=== PATIENT | male | born 1955 | race Caucasian/White ===

== ENCOUNTER → 2018-07-11 13:57 | Outpatient (CLI) | payer OTHER | END | disposition home or self-care (01) | LOC: D.HCCARDIO 13:57 | PROVIDERS: ATTEND Internal Medicine Cardiovascular Disease | DX: I48.91 Unspecified atrial fibrillation (principal); I10 Essential (primary) hypertension ==

== ENCOUNTER → 2018-07-25 09:54 | Outpatient (CLI) | payer OTHER | END | disposition home or self-care (01) | LOC: D.HCCARDIO 09:54 | PROVIDERS: ATTEND Internal Medicine Cardiovascular Disease | DX: R94.31 Abnormal electrocardiogram [ECG] [EKG] (principal) ==

== ENCOUNTER 2018-08-08 11:43 | Outpatient (CLI) | payer OTHER ==
[~2018-08-08] VITALS: Ht 180.3 cm; Wt 86.4 kg
--- NOTE | ~2018-08-08 | HEMODYNAMI ---
PATIENT:NICKI BUSTAMANTE MEDICAL RECORD: [id number] : 51 LOCATION:D.CAT ADMISSION DATE: 08/08/18 Generatedon:08/08/201816:03 Patient name: NICKI BUSTAMANTE Patient #: [id number] SSN: DO B: 1955 Date of study: 08/08/2018 Page: Of Hemodynamic Procedure Report Patient Data Patient Demographics Procedure consent was obtained First Name: NICKI Gender: Male Last Name: ROBBY : 1955 [facility] Initial: HANY Age: 62 year(s) Patient #: [id number] Race: Additional ID: [id number] Contact details [address]: [address] [place] [address] State: [place] City: [place] Zip code: [address] Past Medical History Allergies: No known allergies Admission Admission Data Admission Date: 08/08/2018 Admission Time: 11:43 Weight (lbs.): 189.6 Weight (kg.): 86 Lab Results Lab Result Date: 08/08/2018 Lab Result Time: 0:00 Biochemistry Name Units Result Min Max BUN mg/dl 16 --(---*)-- 7 18 Creatinine mg/dl 1 --(--*-)-- 0.6 1.3 CBC Name Units Result Min Max Hematocrit % 43.5 --(*---)-- 42 54 Hemoglobin g/dl 14.8 --(-*--)-- 13.5 17.5 Procedure Procedure Types Cath Procedure Diagnostic Procedure LHC LHC w/Coronaries Procedure Description Procedure Date Procedure Date: 08/08/2018 Procedure Start Time: 15:44 Procedure End Time: 15:57 Procedure Staff Name Function Amos Mazariegos RT Monitor Vladimir Beckwith RN Web Site Administrator Vinay Rendon MD Performing Physician Eleno Yepez RN Nurse Lisa Macias RT Scrub Procedure Data Cath Procedure Fluoroscopy Diagnostic fluoroscopy Total fluoroscopy Time: 2.2 time: 2.2 min min Diagnostic fluoroscopy Total fluoroscopy dose: 499 dose: 499 mGy mGy Contrast Material Contrast Material Type Amount (ml) Isovue 300 41 Entry Location Entry Primary Successful Side Size Upsize Upsize Entry Closure Muro ccessful Closure Location (Fr) 1 (Fr) 2 (Fr) Remarks Device Remarks Radial Right 6 Fr Mechanical artery Short Compression Estimated blood loss: 10 ml Diagnostic catheters Device Type Used For End Catheter Placement DIAGNOSTIC Elan 110cm Procedure 5Fr catheter ([id number]) DIAGNOSTIC Halifax 110cm 5 Procedure Fr catheter ([id number]) Procedure Medications Medication Administration Route Dosage 0.9% NaCl I.V. 100 ml/hr Oxygen etCO2 Nasal cannula 2 l/min Heparin Flush Bag added to field 2 bags (1000units/500ml NS) Lidocaine 2% added to field 20 Radial Cocktail added to field 1 syringe (Verapamil 2mg/Nitro 400mcg/Heparin 1500units) Versed I.V. 2 mg Fentanyl I.V. 100 mcg Radial Cocktail I.A. 1 syringe (Verapamil 2mg/Nitro 400mcg/Heparin 1500units) Hemodynamics Rest HGB: 14.8 (g/dl) Heart Rate: 55 (bpm) Pressure Samples Time Site Value (mmHg) Purpose Heart Use Rate(bpm) 15:46 LV 119/-3,17 Snapshot 59 15:46 LV 123/-1,13 EDP 57 15:47 LV 117/-1,13 Pullback 40 15:47 AO 108/65(83) Pullback 40 15:47 AO 105/64(82) Snapshot 56 15:50 AO 101/64(81) Snapshot 66 Gradients Valve Time Site 1 Site 2 Mean SEP/DFP Peak To Heart Use (mmHg) (sec/min) Peak Rate (mmHg) (bpm) Aortic 15:47 LV AO 13 9 9 40 117/-1,13 108/65(83) Calculations Valve P-P Mean Valve Index Valve Source Name Gradient Area Flow (cm2) Aortic 9 13 9 13 Snapshots Pre Cath Intra NCS Post Cath Vital Signs Time Heart Resp SPO2 etCO2 NIBP (mmHg) Rhythm Pain Sedation Rate (ipm) (%) (mmHg) Status Level (bpm) 15:32:26 53 16 100 33 137/78(101) NSR 0 (11) 10(A) , No pain 15:36:40 47 15 100 30 130/74(93) NSR 0 (11) 10(A) , No pain 15:40:54 46 10 96 41.2 122/69(81) NSR 0 (11) 10(A) , No pain 15:45:00 57 14 98 37.5 130/82(109) NSR 0 (11) 10(A) , No pain 15:49:18 54 12 97 38.2 115/57(80) NSR 0 (11) 10(A) , No pain 15:53:28 64 16 96 38.9 119/64(84) NSR 0 (11) 10(A) , No pain 15:57:38 98 38.2 126/67(82) NSR 0 (11) 10(A) , No pain Medications Time Medication Route Dose Verified Delivered Reason Notes Effectiveness by by 15:30:36 0.9% NaCl I.V. 100 Eleno Eleno Per ml/hr Marleni Yepez physician RN RN 15:30:45 Oxygen etCO2 2 l/min Eleno Eleno for low 02 Nasal Lorigan Marleni sats cannula RN RN 15:30:57 Heparin Flush added 2 bags Eleno Eleno used for Bag to Lorigan Marleni procedure (1000units/500ml RN RN NS) 15:31:07 Lidocaine 2% added 20ml Eleno Eleno for local to vial Lorigan Lorigan anesthetic RN RN 15:31:18 Radial Cocktail added 1 Eleno Eleno used for (Verapamil to syringe Lorigan Marleni procedure 2mg/Nitro field CASTANO RN 400mcg/Hepari 15:44:29 Versed I.V. 2 mg Eleno Eleno for sedation Marleni eYpez RN RN 15:44:37 Fentanyl I.V. 100 mcg Eleno Eleno for sedation Marleni Yepez RN RN 15:44:52 Radial Cocktail I.A. 1 Eleno Vinay for (Verapamil syringe Marleni Rendon MD vasodilation 2mg/Nitro RN 400mcg/Hepari Procedure Log Time Note 15:15:02 Vladimir Beckwith RN sent for patient. Start room use. 15:18:48 Signed procedure consent form obtained from patient. 15:18:50 Diagnostic Cath status Elective 15:18:51 Time tracking: Regular hours (M-F 7:00 - 5:00) 15:18:54 Plan of Care:Hemodynamics will remain stable., Cardiac rhythm will remain stable., Comfort level will be maintained., Respiratory function will remain adequate., Patient/ family verbilizes understanding of procedure., Procedure tolerated without complication., Recovers from procedure without complications.. 15:20:44 Patient received from Pre/Post Procedure Room to CCL 2 Alert and oriented. Tansferred to table in Supine position. 15:20:45 Correct patient and procedure confirmed by team. 15:20:45 Warm blankets applied, and zacarias hugger turned on for patient comfort. 15:20:46 ECG and BP/O2 sat monitors applied to patient. 15::51 Patient Weight : 189.6 lbs 15:22: Patient allergic to No known allergies 15:: Lab Result : BUN 16 mg/dl 15:: Lab Result : Hematocrit 43.5 % 15:: Lab Result : Hemoglobin 14.8 g/dl 15:: Lab Result : Creatinine 1 mg/dl 15:30:36 0.9% NaCl 100 ml/hr I.V. was administered by Eleno Yepez RN; Per physician; 15:30:45 Oxygen 2 l/min etCO2 Nasal cannula was administered by Eleno Yepez RN; for low 02 sats; 15:30:57 Heparin Flush Bag (1000units/500ml NS) 2 bags added to field was administered by Eleno Yepez RN; used for procedure; 15:31:07 Lidocaine 2% 20ml vial added to field was administered by Eleno Yepez RN; for local anesthetic; 15:31:18 Radial Cocktail (Verapamil 2mg/Nitro 400mcg/Heparin 1500units) 1 syringe added to field was administered by Eleno Yepez RN; used for procedure; 15:31:23 Vital chart was started 15:35:40 Right Radial & Right Groin area was prepped with chlora-prep and draped in sterile fashion 15:35:42 Alarms reviewed by R. N. 15:35:43 Sharps counted by scrub and verified by R.N. 15:36:00 Is patient on blood thinner?No 15:36:02 Patient diabetic? No. 15:36:08 ----Pre-sedation anethsthesia assessment.---- 15:36:22 Previous problem with sedation/anesthesia? No ? 15:36:34 Snore? Yes 15:36:36 Sleep apnea? No 15:36:39 Deviated septum? No 15:36:40 Opens mouth fully? Yes 15:36:44 Sticks out tongue? Yes 15:36:50 Airway obstruction? No ? 15:36:57 Dentures? No ? 15:37:13 Pre procedure: right posterior tibial pulse 1+ Palpable, but thready & weak; easily obliterated 15:37:30 IV patent on arrival in left forearm with 0.9% NaCl at KVO. 15:38:32 Use device set Radial Dx or PCI 15:38:34 Medline Cath Pack ([id number]) opened to sterile field. 15:38:34 ACIST Syringe (24326) opened to sterile field. 15:38:36 Bag Decanter (2001S) opened to sterile field. 15:38:38 ACIST Hand Control (00901) opened to sterile field. 15:38:39 ACIST Manifold (41071) opened to sterile field. 15:38:40 Tegaderm 4 x 4 (1626W) opened to sterile field. 15:38:41 MBrace Wrist Support ([id number]) opened to sterile field. 15:38:45 EMERALD Guide Wire (512-693) opened to sterile field. 15:38:46 SHEATH 6FR Slender (801060) opened to sterile field. 15:39:44 Zero performed for pressure channel P1 15:40:47 Physician arrived 15:40:48 --------ALL STOP TIME OUT------ 15:40:49 Final Timeout: patient, procedure, and site verified with staff and physician. All members of the team are in agreement. 15:40:53 Right Radial & Right Groin site verified by team. 15:40:58 Fire Safety Assessment: A--An alcohol-based skin anteseptic being used preoperatively., C--Open oxygen or nitrous oxide is being used., D--An ESU, laser, or fiber-optic light is being used. 15:41:03 Physical assessment completed. ASA score P 2 - A patient with mild systemic disease as per Vinay Rendon MD. 15:43:02 1) 90+ Normal kidney functon but urine findings or structural abnormalities or genetic trait point to kidney disease. 15:43:39 Maximum allowable contrast does (3.7 X eGFR X 0.75) ml. 15:43:44 Sedation plan: IV Moderate Sedation Medication:Versed, Fentanyl 15:44:13 Full Disclosure recording started 15:44:13 Procedure started. 15:44:21 Local anesthetic to right radial artery with Lidocaine 2% by Vinay Rendon MD.INITIAL ACCESS ONLY 15:44:29 Versed 2 mg I.V. was administered by Eleno Yepez RN; for sedation; 15:44:37 Fentanyl 100 mcg I.V. was administered by Eleno Yepez RN; for sedation; 15:44:46 A 6 Fr Short sheath was inserted into the Right Radial artery 15:44:52 Radial Cocktail (Verapamil 2mg/Nitro 400mcg/Heparin 1500units) 1 syringe I.A. was administered by Vinay Rendon MD; for vasodilation; 15:45:33 A DIAGNOSTIC Elan 110cm 5Fr catheter ([id number]) was advanced over the wire and used for Procedure. 15:45:40 Baseline sample Acquired. 15:45:44 Rhythm: sinus bradycardia 15:46:49 LV gram done using SETHI 15:46:51 LV hemodynamics recorded. 15:46:57 EF : 50 % 15:47:33 RCA angiography performed. 15:49:03 Catheter removed. 15:49:45 A DIAGNOSTIC Halifax 110cm 5 Fr catheter ([id number]) was advanced over the wire and used for Procedure. 15:50:15 LCA angiography performed. 15:52:07 TR BAND Standard ([id number]) opened to sterile field. 15:55:06 Sheath removed intact; hemostasis achieved with Mechanical Compression to the Right Radial artery. 15:55:08 Procedure ended.(Physican Out) 15:55:19 Fluoroscopy time 02.20 minutes. 15:55:28 Fluoroscopy dose: 499 mGy 15:55:28 Flurop Dose total: 499 15:55:35 Contrast amount:Isovue 300 41ml. 15:55:42 Sharps counted by scrub and verified by R.N. 15:55:45 Insertion/operative site no bleeding no hematoma. 15:55:57 Post right radial artery:stable 15:56:01 Post Procedure Pulses reassessed and unchanged 15:56:13 Post-procedure physical assessment completed. ASA score P 2 - A patient with mild systemic disease as per Vinay Rendon MD. 15:56:19 Post procedure rhythm: sinus bradycardia 15:56:23 Estimated blood loss: 10 ml 15:56:40 Patient needs reinforcement of post procedure teaching. 15:57:19 Procedure and supply charges have been captured, reviewed, submitted and are correct. 15:57:22 See physician's report for complete and final results. 15:57:22 Vital chart was stopped 15:57:26 Report given to Pre/Post Procedure Room. 15:57:30 Patient transfered to Pre/Post Procedure Room with Stretcher. 15:57:33 Full Disclosure recording stopped 15:57:33 Procedure ended. 15:57:40 End room use (Document Last) Device Usage Item Name Manufacture Quantity Catalog Hospital Part Current Minimal Lot# / Number Charge Number Stock Stock Serial# Code ACIST Acist 1 35948 113047 626130 016258 20 Syringe Medical (78377) Systems Inc Medline Medline 1 [id number] 688629 91835 014171 5 Cath Pack ([id number]) Bag Microtek 1 2001S 566859 75490 152485 5 Decanter Medical Inc. () ACIST Hand Acist 1 18152 783827 314289 319369 5 Control Medical (34962) Systems Inc ACIST Acist 1 93995 814113 869970 255336 5 Manifold Medical (32624) Systems Inc Tegaderm 4 3M 1 1626W 810576 431513 808966 5 x 4 (1626W) MBrace Advanced 1 140-0250-00 635481 79963 089598 5 Wrist Vascular Support Dynamics ([id number]) [facility] Cardinal 1 502-455 807017 563739 447124 5 Guide Wire [facility] (502455) SHEATH 6FR Terumo 1 [id number] 619241 501905 312189 5 Slender (80-1060) DIAGNOSTIC Terumo 1 40-5023 841469 338711 359609 5 Elan 110cm 5Fr catheter (165201) DIAGNOSTIC Terumo 1 40-5013 178761 046213 081222 5 Halifax 110cm 5 Fr catheter (468123) TR BAND Terumo 1 [id number] 077103 619909 040318 40 Standard ([id number]) Signature Audit [place] Stage Time Signature Unsigned Intra-Procedure 08/08/2018 Amos Mazariegos 4:03:27 PM RT(R) (CV) Signatures Monitor : Amos Mazariegos RT Signature : Date : Time : [address] [place] [address]
[2018-08-08] MEDS ORDERED: LIPITOR20 MG PO (12:49)
[2018-08-08] MEDS ORDERED: LISINOPRIL10 MG PO (12:50)
[2018-08-08 13:04] VITALS: BP 134/77; Ht 180.3 cm; Wt 86.4 kg
[2018-08-08 13:15] LABS: BASOPHILS 0.4 % (0-2); EOSINOPHILS 3.2 % (0-7); HEMATOCRIT 43.5 % (42.0-54.0); HEMOGLOBIN 14.8 g/dL (13.5-17.5); IMMATURE GRANULOCYTES 0.1 % (0-5); LYMPHOCYTES 26.5 % (15-50); MCV 85.1 fL (80.0-100.0); MEAN PLATELET VOLUME 9.4 fL (7.4-10.4); MONOCYTES 6.4 % (2-11); NEUTROPHILS 63.4 % (40-80); PLATELET COUNT 183 10x3/uL (130-400); RBC 5.11 10x6/uL (4.20-6.10); RDW 13.4 % (11.5-14.5); WBC 6.8 10x3/uL (4.8-10.8)
[2018-08-08 13:21] LABS: CALC OSMOLALITY 280 mosm/kg (275-300); CALCIUM 9.2 mg/dL (8.5-10.1); CHLORIDE - SERUM 105 mmol/L (98-107); GLUCOSE 87 mg/dL (74-106); SODIUM 141 mmol/L (136-145); UREA NITROGEN 16 mg/dL (7-18); eGFR NON AFRICAN AMERICAN 80 mL/min (90-120)
--- NOTE | 2018-08-08 16:02 | NUR ---
PT ARRIVED BY STRETCHER. PLACED ON MONITORS. ASSESSMENT COMPLETED. CALL LIGHT WITHIN REACH. FAMILY AT BEDSIDE.
--- NOTE | 2018-08-08 16:17 | NUR ---
PT RESTING COMFORTABLY. RIGHT RADIAL TR BAND IN PLACE. NO BLEEDING/HEMATOMA NOTED. FAMILY AT BEDSIDE. VSS.
--- NOTE | 2018-08-08 16:50 | NUR ---
RIGHT RADIAL TR BAND IN PLACE. NO BLEEDING/HEMATOMA NOTED. PT SITTING UP. SET UP WITH SANDWICH TRAY AND DRINK. DENIES NAUSEA. FAMILY AT BEDSIDE. VSS.
--- NOTE | 2018-08-08 17:30 | NUR ---
ATTEMPTED TO REMOVE 3cc OF AIR FROM TR BAND. STARTED TO BLEED. AIR PLACED BACK IN. WILL WAIT AND ATTEMPT TO WEAN.
--- NOTE | 2018-08-08 17:45 | NUR ---
1cc OF AIR REMOVED FROM TR BAND. NO BLEEDING/HEMATOMA NOTED.
--- NOTE | 2018-08-08 17:55 | NUR ---
1cc OF AIR REMOVED FROM TR BAND. TOLERATED WELL.
--- NOTE | 2018-08-08 18:05 | NUR ---
2cc OF AIR REMOVED FROM TR BAND. NO BLEEDING/HEMATOMA NOTED.
--- NOTE | 2018-08-08 18:20 | NUR ---
2cc OF AIR REMOVED FROM TR BAND. TOLERATING WELL. NO BLEEDING/HEMATOMA NOTED.
--- NOTE | 2018-08-08 18:35 | NUR ---
3cc OF AIR REMOVED FROM TR BAND. NO BLEEDING/HEMATOMA NOTED. TOLERATING WELL. PIV D/C'D WITH CATH TIP INTACT. PT TOLERATED WELL. INSTRUCTED TO GET UP AND DRESSED.
--- NOTE | 2018-08-08 18:50 | NUR ---
TR BAND REMOVED. DRESSING APPLIED. NO BLEEDING/HEMATOMA NOTED. WILL MONITOR. FAMILY AT BEDSIDE.
--- NOTE | 2018-08-08 19:15 | NUR ---
RIGHT WRIST DRESSING C/D/I. NO S/S OF HEMATOMA NOTED. PT TAKEN OUT TO VEHICLE BY WHEELCHAIR. NO S/S OF DISTRESS NOTED. ALL BELONGINGS AND PAPERWORK IN HAND.
== END 2018-08-08 19:15 | disposition home or self-care (01) ==
LOC: D.CATH 11:43
PROVIDERS: ATTEND Internal Medicine Cardiovascular Disease
DX: I48.91 Unspecified atrial fibrillation (principal); Z01.812 Encounter for preprocedural laboratory examination